=== PATIENT | male | born 1975 | race Two or more races ===

== ENCOUNTER 2018-06-19 14:09 | Outpatient (CLI) | payer OTHER | END 2018-06-19 15:01 | disposition home or self-care (01) | LOC: RAD 501 14:09 | DX: M25.571 Pain in right ankle and joints of right foot (principal); M54.2 Cervicalgia; M54.5 Low back pain ==

== ENCOUNTER 2020-10-04 08:16 | Outpatient (CLI) | payer OTHER | END 2020-10-04 16:43 | disposition home or self-care (01) | LOC: PPH VACUNA 08:16 | DX: Z23 Encounter for immunization (principal) ==

== ENCOUNTER → 2021-09-03 | Outpatient (CLI) | payer OTHER | END | disposition home or self-care (01) | LOC: PPH VACUNA 09:00 | PROVIDERS: ATTEND Emergency Medicine Pediatric Emergency Medicine | DX: Z23 Encounter for immunization (principal) ==